=== PATIENT | female | born 1970 | race Caucasian/White ===

== ENCOUNTER → 2016-07-29 | Outpatient (CLI) | payer BC | END | disposition home or self-care (01) | LOC: RAD 10:33 | DX: R06.02 Shortness of breath (principal); R00.2 Palpitations | CPT/HCPCS: 71020 ==

== ENCOUNTER → 2016-07-29 | Outpatient (CLI) | payer BC | END | disposition home or self-care (01) | LOC: RES 07-27 09:00 | DX: R06.02 Shortness of breath (principal) | CPT/HCPCS: 94010; 94070; 94726; 94729 ==

== ENCOUNTER 2016-11-15 13:22 | Emergency (ER) | payer BC ==
[~2016-11-15] VITALS: Ht 162.6 cm; Wt 84.4 kg
[2016-11-15 15:09] LABS: HEMATOCRIT 44.4 % (36.0-46.0); MCH 29.7 PG (29.0-34.0); MCHC 33.6 G/DL (30.0-36.0); MCV 88.6 FL (83-99); MEAN PLAT.VOLUME 9.5 uM^3 (9.5-12.4); PLATELET COUNT 214 K/uL (156-360); RBC DIS.WIDTH-SD 38.8 % (39-53); RED BLOOD COUNT 5.01 M/uL (3.80-5.20); WHITE BLOOD COUNT 5.2 K/uL (4.1-10.2)
[2016-11-15 15:16] LABS: CHLORIDE 108 mEq/L (99-109); POTASSIUM 4.5 mEq/L (3.7-5.4); SODIUM 138 mEq/L (136-147)
[2016-11-15 15:18] LABS: GLUCOSE 102 mg/dL (70-99)
[2016-11-15 15:20] LABS: ANION GAP 7 MEQ/L (2-14)
[2016-11-15 15:21] LABS: ADD MIUA? NO; BILIRUBIN NEGATIVE; BLOOD NEGATIVE; COLOR YELLOW ((YELLOW)); GLUCOSE (STRIP) NEGATIVE; KETONES NEGATIVE; LEUKOCYTES NEGATIVE; NITRITE NEGATIVE; PROTEIN (STRIP) NEGATIVE; SPECIFIC GRAVITY 1.015 (1.000-1.030); UROBILINOGEN 0.2 MG/DL (0.2-1.0)
[2016-11-15 15:22] LABS: GFR ESTIMATE (CALCULATED) > 59 mL/min/
[2016-11-15 15:23] LABS: UREA NITROGEN (BUN) 18 mg/dL (9-23)
[2016-11-15 15:30] LABS: QUANTITATIVE HCG < 4.0 MIU/ML
[2016-11-15 16:45] VITALS: BP 127/79
[2016-11-15] MEDS ORDERED: BUPROPION XL300 MG PO (16:45)
== END 2016-11-15 16:45 | disposition home or self-care (01) ==
LOC: EME 13:22
PROVIDERS: Nurse Practitioner Family
DX: R51 Headache (principal); Z86.69 Personal history of other diseases of the nervous system and sense organs; Z88.6 Allergy status to analgesic agent
CPT/HCPCS: 70450; 80048; 81003; 84702; 85027; 99281; 99284